=== PATIENT | female | born 2000 | race Caucasian/White ===

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

== ENCOUNTER 2018-01-21 11:00 | Outpatient (CLI) | payer OTHER ==
[2018-01-21 11:18] VITALS: BP 109/59
[2018-01-21] MEDS ORDERED: LACTATED RINGERS 1,000 ML IV SCH (12:00)
[2018-01-21 12:12] LABS: Bacteria,Urine 1+ /HPF (Negative); Bilirubin,Urine NEG (Negative); Blood,Urine NEG (Negative); Color,Urine Straw (Yellow); Protein,Urine <15 mg/dL mg/dL (Negative); Urobilinogen,Urine < 2.0 mg/dL (<2.0); WBC,Urine < 1.0 /HPF (0.0-6.0)
[2018-01-21 12:23] LABS: RBC,Urine < 1.0 /HPF (0.0-6.0)
== END 2018-01-21 13:20 | disposition home or self-care (01) ==
LOC: TRG 11:00
PROVIDERS: ATTEND Obstetrics & Gynecology
DX: O47.1 False labor at or after 37 completed weeks of gestation (principal); Z3A.38 38 weeks gestation of pregnancy
CPT/HCPCS: 81001; J7120

== ENCOUNTER 2018-02-09 12:17 | Outpatient (CLI) | payer OTHER | END 2018-02-09 13:05 | disposition home or self-care (01) | LOC: TRG 12:17 | PROVIDERS: ATTEND Obstetrics & Gynecology | DX: O47.1 False labor at or after 37 completed weeks of gestation (principal); Z3A.40 40 weeks gestation of pregnancy | CPT/HCPCS: 59025 ==

== ENCOUNTER 2018-02-15 10:22 | Inpatient (IN) | payer OTHER ==
[2018-02-15] MEDS ORDERED: SUBLIMAZE IV PRN (13:24)
[2018-02-15] MEDS ORDERED: MINERAL OIL PO PRN (13:24)
[2018-02-15] MEDS ORDERED: ZOFRAN IV PRN ×2 (13:24→21:03)
[2018-02-15] MEDS ORDERED: XYLOCAINE 2% INFILTRATI ONE (13:24)
[2018-02-15] MEDS ORDERED: BRETHINE IVP PRN (13:24)
[2018-02-15] MEDS ORDERED: ePHEDrine SULFATE IV PRN ×2 (13:24→19:44)
[2018-02-15] MEDS ORDERED: BRETHINE SUB-Q PRN (13:24)
[2018-02-15] MEDS ORDERED: PITOCin/NS 30 UNIT/500ML 30 UNITS/500 ML BAG IV SCH ×2 (14:00)
[2018-02-15] MEDS ORDERED: PITOCin/NS 20 UNIT/1000ML DRIP 20 UNITS/1,000 ML BAG IV SCH ×2 (14:00→22:00)
[2018-02-15 14:06] LABS: Hematocrit 35.6 % (30.3-42.9); Hemoglobin 11.6 gm/dl (10.1-14.3); Mean Corpuscular HGB Conc 33 % (30-34); Mean Corpuscular Hemoglobin 28 pg (28-32); Mean Corpuscular Volume 85 fl (79-97); Platelet Count 241 K/mm3 (140-440); Red Blood Count 4.19 M/mm3 (3.65-5.03); Red Cell Distribution Width 14.8 % (13.2-15.2)
[2018-02-15] MEDS: LACTATED RINGERS 1,000 ML IV SCH ×3 (14:30→20:01)
[2018-02-15] MEDS: STADOL IV PRN ×2 (16:39→19:17)
[2018-02-15] MEDS ORDERED: NARCAN 2 MG/2 ML IV PRN (19:44)
--- NOTE | 2018-02-15 19:51 | History and Physical Report ---
History of Present Illness Date of examination: 02/15/18 Date of admission: 02/15/18 10:22 Chief complaint: induction for postdates History of present illness: This is a 17 yo at 41+ weeks admitted for Induction of labor for postdates. She is a patient of [facility] with [facility] 02/08/18. her OB problem list include close interval , anemia on iron, GBS neg. She has been treated in this for yeast. 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 Past History Past Medical History: no pertinent history, hematologic disorders (sickle cell trait) Past Surgical History: no surgical history Family/Genetic History: none Social history: no significant social history, . denies: smoking, alcohol abuse, prescription drug abuse - Obstetrical History Expected Date of Delivery: 02/08/18 Actual Gestation: 41 Week(s) 0 Day(s) : 2 Para: 1 Hx # Term Pregnancies: 0 Number of Pregnancies: 0 Spontaneous Abortions: 0 Induced : 0 Number of Living Children: 1 Medications and Allergies Allergies Allergy/AdvReac Type Severity Reaction Status Date / Time No Known Allergies Allergy Verified 10/03/15 04:28 Home Medications Medication Instructions Recorded Confirmed Last Taken Type Vit,Calc76/Iron/Folic 1 each PO DAILY 12/03/17 02/09/18 2 Days Ago History [Pnv 29-1 Tablet] ~12/01/17 Active Meds: Active Medications Butorphanol Tartrate (Stadol) 2 mg IV Q2H PRN PRN Reason: Pain , Severe (7-10) Last Admin: 02/15/18 19:17 Dose: 2 mg Ephedrine Sulfate (Ephedrine Sulfate) 10 mg IV Q2M PRN PRN Reason: Hypotension Ephedrine Sulfate (Ephedrine Sulfate) 10 mg IV Q2M PRN PRN Reason: Hypotension Fentanyl (Sublimaze) 100 mcg IV Q2H PRN PRN Reason: Labor Pain Lactated Ringer's (Lactated Ringers) 1,000 mls @ 125 mls/hr IV DIRECT DANIELLE Last Admin: 02/15/18 18:46 Dose: 125 mls/hr Oxytocin/Sodium Chloride (Pitocin/Ns 20 Unit/1000ml Drip) 20 units in 1,000 mls @ 125 mls/hr IV DIRECT DANIELLE Oxytocin/Sodium Chloride (Pitocin/Ns 30 Unit/500ml) 30 units in 500 mls @ 4 mls /hr IV TITR DANIELLE; Protocol Last Titration: 02/15/18 16:55 Dose: 8 mls/hr Oxytocin/Sodium Chloride (Pitocin/Ns 30 Unit/500ml) 30 units in 500 mls @ 1 mls /hr IV TITR DANIELLE; Protocol Fentanyl/Bupivacaine/Sodium Chlor (Fentanyl-Bupiv 2 Mcg/Ml-0.125%) 200 mcg in 100 mls @ 12 mls/hr EPIDURAL TITR DANIELLE; Protocol Influenza Virus Vaccine Quadrival (Fluarix Quad [id number](36 Mos+) 0.5 ml IM .ONCE ONE Stop: 02/16/18 12:01 Mineral Oil (Mineral Oil) 30 ml PO QHS PRN PRN Reason: Constipation Naloxone HCl (Narcan 2 Mg/2 Ml) 0.2 mg IV Q5M PRN PRN Reason: Respiratory sedation Ondansetron HCl (Zofran) 4 mg IV Q8H PRN PRN Reason: Nausea And Vomiting Terbutaline Sulfate (Brethine) 0.25 mg SUB-Q ONCE PRN PRN Reason: Hyperstimulation/Hypertonicity Terbutaline Sulfate (Brethine) 0.25 mg IVP ONCE PRN PRN Reason: Hyperstimulation/Hypertonicity Review of Systems All systems: negative - Vital Signs Vital signs: Vital Signs Pulse Pulse Ox 74 86 02/09/18 12:35 02/09/18 12:35 Temp Pulse Resp BP Pulse Ox 97.6 F 85 22 124/73 100 02/15/18 19:10 02/15/18 19:47 02/15/18 19:10 02/15/18 18:51 02/15/18 19:47 - Physical Exam Breasts: Positive: normal Cardiovascular: Regular rate, Normal S1 Lungs: Positive: Clear to auscultation, Normal air movement Abdomen: Positive: normal appearance, soft, normal bowel sounds. Negative: distention, tenderness, guarding Genitourinary (Female): Positive: normal external genitalia, normal perenium Vulva: both: normal Vagina: Positive: normal moisture Cervix: Negative: lesion Uterus: Positive: normal size Anus/Rectum: Positive: normal perianal skin Extremities: Positive: normal Deep Tendon Reflex Grade: Normal +2 - Obstetrical FHR: category 1 Uterine Contraction Monitor Mode: Palpation Cervical Dilatation: 2 Cervical Effacement Percentage: 80 Uterine Contraction Pattern: Irregular Uterine Tone Measurement Phase: Contraction Uterine Contraction Intensity: Mild Results Result Diagrams: 02/15/18 13:00 All other labs normal. Assessment and Plan A/P IUP 41+ weeks postdates GBS neg ARom/pitocin for induction ivf, labs offer epidrual expect vaginal delivery
--- NOTE | 2018-02-15 20:22 | Anesthesia Consultation ---
Anesthesia Consult and Med Hx Date of service: 02/15/18 - Airway Anesthetic Teeth Evaluation: Good ROM Head & Neck: Adequate Mental/Hyoid Distance: Adequate Mallampati Class: Class II Intubation Access Assessment: Probably Good - Pulmonary Exam CTA: Yes - Cardiac Exam Cardiac Exam: RRR - Pre-Operative Health Status ASA Pre-Surgery Classification: ASA2 Proposed Anesthetic Plan: Epidural, Spinal - Pulmonary Hx Smoking: No Hx Asthma: No COPD: No Hx Pneumonia: No - Cardiovascular System Hx Hypertension: No - Central Nervous System Hx Seizures: No Hx Psychiatric Problems: No - Endocrine Hx Renal Disease: No Hx End Stage Renal Disease: No Hx Hypothyroidism: No Hx Hyperthyroidism: No - Hematic Hx Anemia: Yes Hx Sickle Cell Disease: No - Other Systems Hx Alcohol Use: No
--- NOTE | 2018-02-15 20:23 | Anesthesia Day of Surgery ---
Anesthesia Day of Surgery - Day of Surgery Patient Examined: Yes Patient H&P Reviewed: Yes Patient is NPO: Yes
[2018-02-15] MEDS ORDERED: fentaNYL-BUPIV 2 MCG/ML-0.125% 200 MCG/100 ML BAG EPIDURAL SCH (21:00)
[2018-02-15] MEDS ORDERED: TUCKS PAD TP PRN (21:03)
[2018-02-15] MEDS ORDERED: TYLENOL PO PRN (21:03)
[2018-02-15] MEDS ORDERED: DULCOLAX PR PRN (21:03)
[2018-02-15] MEDS ORDERED: MILK OF MAGNESIA PO PRN (21:03)
[2018-02-15] MEDS ORDERED: NORCO 5/325 PO PRN (21:03)
[2018-02-15] MEDS ORDERED: TORADOL IV PRN (21:03)
[2018-02-15] MEDS ORDERED: PERCOCET 5/325 PO PRN (21:03)
[2018-02-15] MEDS ORDERED: BENADRYL PO PRN (21:03)
[2018-02-15] MEDS ORDERED: PHENERGAN PO PRN (21:03)
[2018-02-15] MEDS ORDERED: LANSINOH TP PRN (21:03)
[2018-02-15] MEDS ORDERED: PHENERGAN PR PRN (21:03)
--- NOTE | 2018-02-15 21:18 | Procedure Note ---
OB Delivery Note - Delivery Date of Delivery: 02/15/18 Surgeon: OLIVIA NGO Estimated blood loss: 200cc - Vaginal Delivery presentation: vertex Delivery position: OA Delivery induction: oxytocin Delivery monitor: external FHT, external uterine Route of delivery: Delivery placenta: spontaneous Delivery cord: 3 umbilical vessels Episiotomy: none Delivery laceration: none Anesthesia: none Delivery comments: Patient was noted to be c/c+1 at 2039 and commenced to deliver a viable female . The weight of the baby noted to be 6 pounds 13oz. The cord was clamped and cut and handed to awaiting NICU team . Apgars 7 and 9. The placenta delivered intact with 3 vessel cord at 2049. No lacs noted. maneuver used were McRobertsand pressure on pubic symphysis. To note, any baby larger will be difficult to deliver vaginally. - A at 1 minute: 7 at 5 minutes: 9 Gender: Female
[2018-02-15] MEDS ORDERED: SODIUM CHLORIDE FLUSH SYRINGE 10 ML IV PRN (22:00)
[2018-02-15] MEDS: MOTRIN PO SCH (23:23)
[2018-02-15] MEDS: COLACE PO SCH (23:23)
[2018-02-16] MEDS: MOTRIN PO SCH ×3 (05:33→23:31)
[2018-02-16] MEDS ORDERED: BOOSTRIX IM ONE (06:00)
[2018-02-16] MEDS: SENOKOT S PO SCH (06:12)
[2018-02-16] MEDS: COLACE PO SCH ×2 (08:14→23:31)
--- NOTE | 2018-02-16 08:31 | Progress Note ---
Assessment and Plan A: PPD#1 s/p at term P: Routine care. Anticipate discharge tomorrow. Subjective - Subjective Date of service: 02/16/18 Principal diagnosis: s/p at term Interval history: Pt c/o thigh soreness and abdominal cramping presently but she had not had pain medicine recently. No additional complaints. Patient reports: appetite normal, voiding normally, ambulating normally, no nauseated [place]: doing well Objective - Vital Signs Latest vital signs: Vital Signs Temp Pulse Resp BP BP Pulse Ox 02/16/18 00:00 98.2 F 64 20 106/60 02/15/18 23:35 98.4 F 69 20 107/62 02/15/18 22:10 62 127/83 02/15/18 21:55 93 H 124/86 02/15/18 21:40 90 115/63 02/15/18 21:25 92 H 116/66 02/15/18 21:07 100 H 120/64 02/15/18 21:02 101 H 117/58 02/15/18 20:58 83 129/60 02/15/18 20:53 83 138/63 02/15/18 20:49 107 H 162/63 02/15/18 20:47 102 H 99 02/15/18 20:44 121 H 119/77 02/15/18 20:42 108 H 99 02/15/18 20:40 111 H 120/57 02/15/18 20:37 89 98 02/15/18 20:32 76 99 02/15/18 20:31 78 126/67 02/15/18 20:29 87 125/63 02/15/18 20:27 108 H 99 02/15/18 20:26 110 H 123/60 02/15/18 20:25 94 H 125/61 02/15/18 20:23 88 118/60 02/15/18 20:22 80 99 02/15/18 20:21 84 117/56 02/15/18 20:19 88 123/59 02/15/18 20:17 72 129/64 98 02/15/18 20:15 126 H 125/74 02/15/18 20:13 88 139/75 02/15/18 20:12 79 94 02/15/18 20:11 74 138/77 02/15/18 20:08 68 132/76 02/15/18 20:07 90 96 02/15/18 20:06 91 H 91 02/15/18 20:05 71 123/65 02/15/18 20:03 67 119/66 02/15/18 20:02 80 97 02/15/18 20:00 67 123/65 02/15/18 19:58 68 128/83 02/15/18 19:57 81 93 02/15/18 19:52 80 98 02/15/18 19:51 90 92 02/15/18 19:47 85 100 02/15/18 19:42 88 100 02/15/18 19:38 51 L 75 L 02/15/18 19:37 76 99 02/15/18 19:32 77 100 02/15/18 19:29 86 90 02/15/18 19:27 71 100 02/15/18 19:22 90 80 L 02/15/18 19:17 84 100 02/15/18 19:12 84 99 02/15/18 19:10 97.6 F 65 22 02/15/18 19:07 110 H 99 02/15/18 19:02 67 99 02/15/18 18:57 68 99 02/15/18 18:52 74 100 02/15/18 18:51 72 124/73 0 L 02/15/18 17:09 16 02/15/18 17:00 64 118/68 02/15/18 16:53 65 95 02/15/18 16:48 92 H 100 02/15/18 16:43 71 97 02/15/18 16:39 18 02/15/18 16:38 84 68 L 02/15/18 16:37 78 66 L 02/15/18 16:33 78 99 02/15/18 16:29 81 90 02/15/18 16:28 68 97 02/15/18 16:23 63 100 02/15/18 16:21 74 86 02/15/18 16:18 61 97 02/15/18 16:13 59 L 99 02/15/18 16:08 67 98 02/15/18 16:03 68 98 02/15/18 15:58 67 99 02/15/18 15:53 58 L 98 02/15/18 15:48 73 72 L 02/15/18 15:43 65 100 02/15/18 15:38 70 100 02/15/18 15:27 68 99 02/15/18 15:22 61 99 02/15/18 15:17 81 100 02/15/18 15:12 69 100 02/15/18 15:07 47 L 88 02/15/18 15:02 60 99 02/15/18 14:57 58 L 100 02/15/18 14:52 98.2 F 57 L 16 114/77 99 02/15/18 14:47 66 99 02/15/18 14:46 64 114/77 02/15/18 14:42 61 100 02/15/18 14:37 63 100 02/15/18 14:32 57 L 100 02/15/18 14:27 57 L 100 02/15/18 14:22 68 100 02/15/18 14:17 63 100 02/15/18 14:12 65 98 02/15/18 14:09 63 94 02/15/18 14:07 55 L 100 02/15/18 14:02 58 L 86 02/15/18 14:01 67 80 L 02/15/18 13:47 77 92 02/15/18 13:46 71 96 02/15/18 13:41 71 89 02/15/18 13:36 63 100 02/15/18 13:32 76 86 02/15/18 13:31 56 L 99 02/15/18 13:26 73 99 02/15/18 13:21 76 99 02/15/18 13:16 71 99 02/15/18 13:11 69 100 02/15/18 13:06 60 99 02/15/18 13:01 62 100 02/15/18 12:56 73 100 02/15/18 12:55 103 H 84 Intake and Output 02/15/18 02/16/18 02/16/18 22:59 06:59 14:59 Intake Total 697.916 480 Output Total 800 1900 Balance -102.084 -1420 Intake: IV 697.916 Lactated Ringers 1,000 ml 689.583 @ 125 mls/hr IV DIRECT DANIELLE Rx#:[id number] PITOCin/NS 30 UNIT/500ML 8.333 30 units In 500 ml @ 4 mls/hr IV TITR DANIELLE Rx#: [id number] Oral 480 Output: Urine 800 1900 Indwelling Catheter 800 Void 1900 Other: Total, Intake Amount 240 Total, Output Amount 800 800 # Voids Indwelling Catheter 1 Estimated Blood Loss 200 - Exam Breasts: Present: deferred Cardiovascular: Present: Regular rate Lungs: Present: Clear to auscultation Abdomen: Present: soft Uterus: Present: fundal height at umbilicus Extremities: Present: normal
--- NOTE | 2018-02-16 08:34 | Discharge Summary ---
Providers - Providers Date of Admission: 02/15/18 10:22 Date of discharge: 02/17/18 Attending physician: OLIVIA ZHOU MD Primary care physician: OLIVIA ZHOU MD Hospitalization Reason for admission: induction of labor Delivery: Procedure details: Please see delivery note. Episiotomy: none Laceration: none Other procedures: none complications: none Discharge diagnosis: IUP at term delivered baby: female Hospital course: Pt was admitted for induction of labor and went on to have a spontaneous vaginal delivery which she tolerated well. Her course was uncomplicated and she met discharge criteria on PPD#2. She will follow up in [address] Zhou. Condition at discharge: Stable Disposition: DC-01 TO HOME OR SELFCARE - Discharge Diagnoses (1) Term of female Status: Acute Plan - Discharge Medications Prescriptions: Ferrous Sulfate [Feosol 325 MG tab] 325 mg PO BID #60 tablet Ibuprofen [Motrin] 600 mg PO Q8H PRN #30 tablet PRN Reason: Pain oxyCODONE /ACETAMINOPHEN [Percocet 5/325] 1 tab PO Q6HR PRN #20 tablet PRN Reason: Pain - Provider Discharge Summary Activity: routine, no sex for 6 weeks, no heavy lifting 4 weeks, no strenuous exercise Diet: routine Instructions: routine Additional instructions: [] Smoking cessation referral if applicable(refer to patient education folder for contact #) [] Refer to [facility] Booklet Call your doctor immediately for: * Fever > 100.5 * Heavy vaginal bleeding ( >1 pad per hour) * Severe persistent headache * Shortness of breath * Reddened, hot, painful area to leg or breast * Drainage or odor from incision. * Keep incision clean and dry at all times and follow doctor's instructions regarding bathing/showering - Follow up plan Follow up: OLIVIA ZHOU MD [Primary Care Provider] - 03/15/18 ( exam- please call for an appt )
[2018-02-16] MEDS ORDERED: PRENATAL VITAMIN PO SCH (10:00)
[2018-02-16 10:01] LABS: Hematocrit 31.9 % (30.3-42.9); Hemoglobin 10.3 gm/dl (10.1-14.3)
[2018-02-16] MEDS ORDERED: Fluarix Quad 2017-2018(36 MOS+ IM ONE (12:00)
[2018-02-16] MEDS ORDERED: M-M-R II VACCINE SUB-Q ONE (21:03)
[2018-02-17] MEDS: MOTRIN PO SCH (05:09)
[2018-02-17] MEDS: SENOKOT S PO SCH (06:00)
[2018-02-17 10:23] VITALS: BP 101/64
== END 2018-02-17 10:19 | disposition home or self-care (01) | DRG 775 ==
LOC: LD 10:22 → OB 22:46
PROVIDERS: ADMIT Obstetrics & Gynecology; ATTEND Obstetrics & Gynecology
PROC: 10E0XZZ Delivery of Products of Conception, External Approach (ICD-10-PCS; principal; 2018-02-15)
PROC: 3E033VJ Introduction of Other Hormone into Peripheral Vein, Percutaneous Approach (ICD-10-PCS; 2018-02-15)
DX: O48.0 Post-term pregnancy (principal); O99.02 Anemia complicating childbirth; Z3A.41 41 weeks gestation of pregnancy; Z37.0 Single live birth; D57.3 Sickle-cell trait
CPT/HCPCS: 36415; 85014; 85018; 85027; 86592; 86850; 86900; 86901; 90471; 90686; 90715; 99211; G0463; J0595; J2405; J2590; J7120